=== PATIENT | female | born 1970 | race African-American/Black ===

== ENCOUNTER 2018-01-22 07:13 | Emergency (ER) | payer MEDICAID ==
[~2018-01-22] VITALS: Ht 170.2 cm; Wt 93.2 kg
[~2018-01-22 07:13] MED LIST: BENA1POW2; BENA20TA10 PO; HCTZ; HYDR-523 PO; HYDR25TA PO; HYDROCODONE
[2018-01-22] MEDS ORDERED: MORPHINE SULFATE 4 MG/ML CPJ (NOT FOR IM USE) IV STA (07:57)
[2018-01-22] MEDS ORDERED: ONDANSETRON HCL 4MG/2ML INJ IV STA (07:57)
[2018-01-22 08:12] LABS: HEMATOCRIT. 43.8 % (36.0-48.0); HEMOGLOBIN. 14.8 g/dL (12.0-16.0); MEAN CORPUSCULAR HEMOGLOBIN 31.9 pg (28.0-32.0); MEAN CORPUSCULAR VOLUME 94.4 fL (81.0-99.0); PLATELET 209 x1000/uL (130-400); RED BLOOD CELL COUNT 4.64 mill/uL (4.2-5.4); RED CELL DISTRIBUTION WIDTH 13.3 % (11.6-14.6)
[2018-01-22 08:16] LABS: CHLORIDE 103 mEq/L (98-107)
[2018-01-22 08:19] LABS: PROTHROMBIN TIME 10.3 sec (9.1-11.1)
[2018-01-22 08:37] LABS: HCG SCREEN NEGATIVE
[2018-01-22 08:48] LABS: PLATELET ESTIMATE NORMAL
[2018-01-22 09:45] LABS: CLARITY URINE CLEAR (CLEAR); COLOR URINE YELLOW (YELLOW); KETONES URINE 2+ (NEGATIVE); LEUKOCYTE ESTERASE URINE NEGATIVE (NEGATIVE); NITRITE URINE NEGATIVE (NEGATIVE); OCCULT BLOOD URINE NEGATIVE (NEGATIVE); PH URINE 7.5 (4.5-8.0); PROTEIN URINE NEGATIVE (NEGATIVE); SPECIFIC GRAVITY URINE 1.021 (1.005-1.030); UROBILINOGEN URINE 0.2 E.U./dL (0.2-1.0)
[2018-01-22] MEDS ORDERED: ONDANSETRON HCL 4MG/2ML INJ IV ONE (11:00)
[2018-01-22] MEDS ORDERED: KETOROLAC 30MG/ML VIAL IV ONE (11:30)
[2018-01-22 12:10] VITALS: BP 158/82
== END 2018-01-22 12:35 | disposition home or self-care (01) ==
LOC: ER 07:48
DX: K52.9 Noninfective gastroenteritis and colitis, unspecified (principal); R11.2 Nausea with vomiting, unspecified; I10 Essential (primary) hypertension; Z90.710 Acquired absence of both cervix and uterus; Z90.10 Acquired absence of unspecified breast and nipple; Z79.899 Other long term (current) drug therapy
CPT/HCPCS: 36415; 80053; 81003; 83690; 84703; 85025; 85610; 96374; 96375; 96376; 99284; J1885; J2270; J2405

== ENCOUNTER 2018-04-12 00:10 | Emergency (ER) | payer MEDICAID ==
[~2018-04-12] VITALS: Ht 172.7 cm; Wt 100.0 kg
[2018-04-12] MEDS ORDERED: KETOROLAC 30MG/ML VIAL IV STA (02:15)
[2018-04-12] MEDS ORDERED: FAMOTIDINE 20MG/2ML VIAL IV STA (02:15)
[2018-04-12] MEDS ORDERED: ONDANSETRON HCL 4MG/2ML INJ IV STA (02:15)
[2018-04-12 02:55] LABS: HEMATOCRIT. 43.5 % (36.0-48.0); HEMOGLOBIN. 14.7 g/dL (12.0-16.0); MEAN CORPUSCULAR HEMOGLOBIN 31.3 pg (28.0-32.0); MEAN CORPUSCULAR VOLUME 92.7 fL (81.0-99.0); MEAN PLATELET VOLUME 9.9 fl (7.4-10.4); PLATELET 300 x1000/uL (130-400); RED BLOOD CELL COUNT 4.69 mill/uL (4.2-5.4); RED CELL DISTRIBUTION WIDTH 13.2 % (11.6-14.6)
[2018-04-12 03:00] LABS: INR 1.1; PROTHROMBIN TIME 10.8 sec (9.1-11.1)
[2018-04-12 03:01] LABS: CHLORIDE 104 mEq/L (98-107)
[2018-04-12 03:05] LABS: ETHANOL BLOOD < 10 mg/dL
[2018-04-12 03:14] LABS: CLARITY URINE CLOUDY (CLEAR); COLOR URINE YELLOW (YELLOW); KETONES URINE 3+ (NEGATIVE); LEUKOCYTE ESTERASE URINE NEGATIVE (NEGATIVE); NITRITE URINE NEGATIVE (NEGATIVE); OCCULT BLOOD URINE TRACE (NEGATIVE); PROTEIN URINE 1+ (NEGATIVE); SPECIFIC GRAVITY URINE 1.029 (1.005-1.030)
[2018-04-12] MEDS ORDERED: HALOPERIDOL LACTATE 5MG/ML VIAL IM ONE ×2 (03:15→05:15)
[2018-04-12 03:25] LABS: *AMPHETAMINES SCREEN URINE NEGATIVE (NEGATIVE); *BARBITURATES SCREEN URINE NEGATIVE (NEGATIVE); *BENZODIAZEPINES SCREEN URINE NEGATIVE (NEGATIVE)
[2018-04-12 03:26] LABS: *COCAINE SCREEN URINE NEGATIVE (NEGATIVE); METHADONE URINE SCREEN NEGATIVE (NEGATIVE); OPIATES URINE SCREEN NEGATIVE (NEGATIVE); PHENCYCLIDINE URINE SCREEN NEGATIVE (NEGATIVE)
[2018-04-12 03:29] LABS: CANNABINOID URINE SCREEN PRESUMTIVE POSITIVE (NEGATIVE)
[2018-04-12] MEDS ORDERED: POTASSIUM CHLORIDE 20MEQ TABLET SR PO ONE (03:30)
[2018-04-12] MEDS ORDERED: METOCLOPRAMIDE HCL 10MG/2ML VIAL IV ONE ×2 (04:00→05:00)
[2018-04-12 05:07] LABS: PLATELET ESTIMATE NORMAL
[2018-04-12 06:24] VITALS: BP 177/84
== END 2018-04-12 07:25 | disposition left against medical advice (07) ==
LOC: ER 00:10
DX: R10.13 Epigastric pain (principal); E87.6 Hypokalemia; F12.10 Cannabis abuse, uncomplicated; I10 Essential (primary) hypertension; F17.200 Nicotine dependence, unspecified, uncomplicated; R11.2 Nausea with vomiting, unspecified; Z90.49 Acquired absence of other specified parts of digestive tract; Z90.10 Acquired absence of unspecified breast and nipple; Z90.710 Acquired absence of both cervix and uterus; Z79.899 Other long term (current) drug therapy; Z87.19 Personal history of other diseases of the digestive system
CPT/HCPCS: 36415; 74176; 80053; 80305; 81003; 83690; 85025; 85610; 96372; 96374; 96375; 99284; G0482; J1630; J1885; J2405; J2765; J3490; Z7610

== ENCOUNTER 2018-04-13 11:59 | Emergency (ER) | payer MEDICAID ==
[~2018-04-13] VITALS: Ht 165.1 cm; Wt 61.0 kg
[2018-04-13] MEDS ORDERED: LORAZEPAM 2MG/ML CPJ IV ONE (13:00)
[2018-04-13 14:46] LABS: BASOPHILS % 0.5 % (0.0-2.0); HEMATOCRIT. 40.6 % (36.0-48.0); LYMPHOCYTES % 8.5 % (20.0-50.0); MEAN CORPUSCULAR HEMOGLOBIN 31.9 pg (28.0-32.0); MEAN CORPUSCULAR VOLUME 92.7 fL (81.0-99.0); MEAN PLATELET VOLUME 9.4 fl (7.4-10.4); MONOCYTES % 5.5 % (2.0-8.0); NEUTROPHILS % 85.5 % (40.0-76.0); PLATELET 268 x1000/uL (130-400); RED BLOOD CELL COUNT 4.38 mill/uL (4.2-5.4)
[2018-04-13 14:53] LABS: CHLORIDE 104 mEq/L (98-107)
[2018-04-13 15:59] VITALS: BP 142/87
== END 2018-04-13 16:30 | disposition home or self-care (01) ==
LOC: ER 11:59
DX: F41.1 Generalized anxiety disorder (principal); F43.0 Acute stress reaction; F43.29 Adjustment disorder with other symptoms; E87.6 Hypokalemia; I10 Essential (primary) hypertension; Z63.4 Disappearance and death of family member; Z90.10 Acquired absence of unspecified breast and nipple; Z90.710 Acquired absence of both cervix and uterus
CPT/HCPCS: 36415; 80053; 85025; 93005; 96374; 99284; J2060; Z7610

== ENCOUNTER 2018-04-23 07:41 | Emergency (ER) | payer MEDICAID ==
[~2018-04-23] VITALS: Ht 167.6 cm; Wt 80.0 kg
[2018-04-23] MEDS ORDERED: SODIUM CHLORIDE 0.9% 1,000 ML IV ONE (08:22)
[2018-04-23] MEDS ORDERED: FAMOTIDINE 20MG/2ML VIAL IV STA (08:22)
[2018-04-23] MEDS ORDERED: DICYCLOMINE HCL 10MG/ML 2ML AMP IM ONE (08:30)
[2018-04-23 09:23] LABS: HEMATOCRIT. 44.7 % (36.0-48.0); HEMOGLOBIN. 15.2 g/dL (12.0-16.0); MEAN CORPUSCULAR HEMOGLOBIN 31.4 pg (28.0-32.0); MEAN CORPUSCULAR VOLUME 92.4 fL (81.0-99.0); MEAN PLATELET VOLUME 10.2 fl (7.4-10.4); PLATELET 259 x1000/uL (130-400); RED BLOOD CELL COUNT 4.83 mill/uL (4.2-5.4); RED CELL DISTRIBUTION WIDTH 13.2 % (11.6-14.6)
[2018-04-23 09:26] LABS: CHLORIDE 102 mEq/L (98-107)
[2018-04-23 09:40] VITALS: BP 163/83
[2018-04-23 09:56] LABS: PLATELET ESTIMATE NORMAL
== END 2018-04-23 11:21 | disposition home or self-care (01) ==
LOC: ER 07:41
DX: R10.84 Generalized abdominal pain (principal); R11.2 Nausea with vomiting, unspecified; K59.00 Constipation, unspecified; I10 Essential (primary) hypertension; Z79.899 Other long term (current) drug therapy; Z90.10 Acquired absence of unspecified breast and nipple; Z90.710 Acquired absence of both cervix and uterus
CPT/HCPCS: 36415; 80053; 83690; 85025; 96374; 99283; J0500; J3490; J7030